=== PATIENT | female | born 1960 | race Caucasian/White ===

== ENCOUNTER 2022-07-05 05:30 | Day surgery (SDC) | payer OTHER ==
[~2022-07-05 05:30] MED LIST: COZAAR25 MG PO; CRESTOR5 MG PO; PLETAL PO
== END 2022-07-05 13:40 | disposition home or self-care (01) ==
LOC: CIR.AMB 05:30
PROVIDERS: ATTEND Specialist
DX: N75.0 Cyst of Bartholin's gland (principal); I10 Essential (primary) hypertension; Z20.822 Contact with and (suspected) exposure to COVID-19; E78.5 Hyperlipidemia, unspecified; Z88.0 Allergy status to penicillin; Z88.6 Allergy status to analgesic agent; E11.9 Type 2 diabetes mellitus without complications